=== PATIENT | male | born 1965 | race Caucasian/White ===

== ENCOUNTER 2017-11-11 12:39 | Emergency (ER) | payer OTHER ==
[~2017-11-11] VITALS: Ht 182.9 cm; Wt 83.9 kg
[~2017-11-11 12:39] MED LIST: BACTRIM DS TAB1 EACH PO; CENTANY30 GM TP; HYDROCODONE-AP1 EAC6 PO; IBUPROFEN 800800 M1 PO; KEFLEX500 MG PO; NORCO 5-325 TA1 EACH PO; PRILOSEC40 MG PO; ROBAXIN 750 MG750 M1 PO
[2017-11-11] MEDS ORDERED: FISH OIL 1,001000 M2 PO (12:56)
[2017-11-11] MEDS ORDERED: PRILOSEC 20 MG20 MG PO (12:56)
[2017-11-11] MEDS ORDERED: ASPIR 8181 MG PO (12:57)
[2017-11-11] MEDS ORDERED: GLUCOSAMINE HC500 MG PO (12:57)
[2017-11-11] MEDS ORDERED: KEFLEX500 M1 PO (13:27)
[2017-11-11 13:37] VITALS: BP 114/71
== END 2017-11-11 13:38 | disposition home or self-care (01) ==
LOC: M.ERS 12:39
DX: S41.112A Laceration without foreign body of left upper arm, initial encounter (principal); F17.200 Nicotine dependence, unspecified, uncomplicated; W26.8XXA Contact with other sharp object(s), not elsewhere classified, initial encounter; Y93.89 Activity, other specified; Y92.89 Other specified places as the place of occurrence of the external cause; Y99.8 Other external cause status

== ENCOUNTER 2020-08-30 11:13 | Emergency (ER) | payer MEDICAID ==
[~2020-08-30] VITALS: Ht 185.4 cm; Wt 88.5 kg
[~2020-08-30 11:13] MED LIST changes: +ASPIR 8181 MG PO; +FISH OIL 1,001000 M2 PO; +GLUCOSAMINE HC500 MG PO; +KEFLEX500 M1 PO; +PRILOSEC 20 MG20 MG PO
[2020-08-30] MEDS ORDERED: LIPITOR20 MG PO (11:23)
[2020-08-30] MEDS ORDERED: DIPHENHIST50 MG PO (11:48)
[2020-08-30] MEDS ORDERED: PREDNISONE 10 M10 M1 PO (11:48)
[2020-08-30 11:55] VITALS: BP 115/74
== END 2020-08-30 11:55 | disposition home or self-care (01) ==
LOC: M.ERS 11:13
DX: L25.9 Unspecified contact dermatitis, unspecified cause (principal)

== ENCOUNTER 2021-03-07 15:13 | Emergency (ER) | payer MEDICAID ==
[~2021-03-07] VITALS: Ht 182.9 cm; Wt 88.5 kg
[~2021-03-07 15:13] MED LIST changes: +DIPHENHIST50 MG PO; +LIPITOR20 MG PO; +PREDNISONE 10 M10 M1 PO
[2021-03-07] MEDS ORDERED: FLEXERIL PO (15:38)
[2021-03-07] MEDS ORDERED: NAPROSYN500 MG PO (15:38)
[2021-03-07] MEDS ORDERED: MEDROLDOSEPACK PO (15:38)
[2021-03-07 15:45] VITALS: BP 106/64
== END 2021-03-07 15:46 | disposition home or self-care (01) ==
LOC: M.ERS 15:13
DX: S16.1XXA Strain of muscle, fascia and tendon at neck level, initial encounter (principal); X58.XXXA Exposure to other specified factors, initial encounter; Y93.89 Activity, other specified; Y92.89 Other specified places as the place of occurrence of the external cause; Y99.8 Other external cause status

== ENCOUNTER 2021-05-13 21:35 | Emergency (ER) | payer MEDICAID ==
[~2021-05-13] VITALS: Ht 182.9 cm; Wt 86.2 kg
[~2021-05-13 21:35] MED LIST changes: +FLEXERIL PO; +MEDROLDOSEPACK PO; +NAPROSYN500 MG PO
[2021-05-13] MEDS ORDERED: PROTONIX 20 MG20 MG PO (21:48)
[2021-05-13 22:34] LABS: ABSOLUTE BASOPHILS 0.1 thou/uL (0.0-0.2); ABSOLUTE EOSINOPHILS 0.2 thou/uL (0.0-0.7); ABSOLUTE LYMPHOCYTES 2.2 thou/uL (0.8-5.3); ABSOLUTE MONOCYTES 0.5 thou/uL (0.0-1.2); ABSOLUTE NEUTROPHILS 3.7 thou/uL (1.6-8.1); BASOPHILS 0.8 %; EOSINOPHILS 3.5 %; HEMATOCRIT 43.8 % (42.0-52.0); HEMOGLOBIN 14.8 gm/dL (14.0-18.0); LYMPHOCYTES 32.8 %; MCH 30.1 pg (26.0-34.0); MCHC 33.9 g/dL (28.0-37.0); MCV 88.9 fL (80.0-100.0); MONOCYTES 7.2 %; MPV 6.7 fl. (7.2-11.1); NUCLEATED RBCS 0 /100WBC; PLATELET COUNT* 263 thou/uL (150-400); POLYS 55.7 %; RBC 4.93 mil/uL (4.50-6.00); RDW-CV 13.4 % (10.5-14.5); WBC 6.7 thou/uL (4.0-11.0)
[2021-05-13 22:52] LABS: CALCIUM 8.5 mg/dL (8.5-10.1); CREATININE 0.9 mg/dL (0.6-1.3); POTASSIUM 3.6 mmol/L (3.5-5.1)
[2021-05-13 22:57] LABS: TOTAL BILIRUBIN 0.9 mg/dL (<0.1-1.0); TOTAL PROTEIN 7.4 g/dL (6.4-8.2)
[2021-05-13] MEDS ORDERED: CEPHALEXIN500 MG PO (23:43)
[2021-05-13 23:57] VITALS: BP 138/98
--- NOTE | 2021-05-14 09:27 | EKG ---
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
== END 2021-05-13 23:58 | disposition home or self-care (01) ==
LOC: M.ERS 21:35
PROVIDERS: Nurse Practitioner Psychiatric/Mental Health
DX: S01.311A Laceration without foreign body of right ear, initial encounter (principal); Z98.890 Other specified postprocedural states; Z79.82 Long term (current) use of aspirin; Z79.899 Other long term (current) drug therapy; W20.8XXA Other cause of strike by thrown, projected or falling object, initial encounter; Y93.89 Activity, other specified; Y92.89 Other specified places as the place of occurrence of the external cause; Y99.8 Other external cause status

== ENCOUNTER 2021-05-17 17:19 | Emergency (ER) | payer MEDICAID ==
[~2021-05-17] VITALS: Ht 182.9 cm; Wt 86.2 kg
[~2021-05-17 17:19] MED LIST changes: +CEPHALEXIN500 MG PO; +PROTONIX 20 MG20 MG PO
[2021-05-17 18:17] VITALS: BP 109/66
== END 2021-05-17 18:18 | disposition home or self-care (01) ==
LOC: M.ERS 17:19
DX: S01.311D Laceration without foreign body of right ear, subsequent encounter (principal); Z79.2 Long term (current) use of antibiotics; Z79.899 Other long term (current) drug therapy; W22.8XXD Striking against or struck by other objects, subsequent encounter

== ENCOUNTER 2021-05-20 06:37 | Emergency (ER) | payer MEDICAID ==
[~2021-05-20] VITALS: Ht 185.4 cm; Wt 88.5 kg
[2021-05-20 07:51] VITALS: BP 123/93
== END 2021-05-20 08:30 | disposition home or self-care (01) ==
LOC: M.ERS 06:37
DX: S01.311D Laceration without foreign body of right ear, subsequent encounter (principal); Z48.02 Encounter for removal of sutures; X58.XXXD Exposure to other specified factors, subsequent encounter